=== PATIENT | female | born 2000 | race Two or more races ===

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

== ENCOUNTER 2024-11-21 17:47 | Emergency (ER) | payer MEDICAID, OTHER ==
[~2024-11-21] VITALS: Ht 165.1 cm; Wt 139.4 kg
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
[2024-11-21] MEDS ORDERED: ACET500T58 PO (19:38)
[2024-11-21] MEDS ORDERED: IBUP-1455 PO (19:38)
[2024-11-21 21:10] VITALS: BP 137/89; PULSE 89; RESP 20; TEMP 98; O2SAT 98
== END 2024-11-21 21:15 | disposition home or self-care (01) ==
LOC: ER 17:50
DX: S16.1XXA Strain of muscle, fascia and tendon at neck level, initial encounter (principal); M54.9 Dorsalgia, unspecified; J45.909 Unspecified asthma, uncomplicated; V43.52XA Car driver injured in collision with other type car in traffic accident, initial encounter; Y93.I9 Activity, other involving external motion; Y92.488 Other paved roadways as the place of occurrence of the external cause; Y99.8 Other external cause status
CPT/HCPCS: 72040; 72070